=== PATIENT | male | born 1995 | race Hispanic/Latino ===

== ENCOUNTER 2020-07-09 14:42 | Outpatient (CLI) | payer BC ==
--- NOTE | 2020-07-09 16:31 | XRay Report ---
RIGHT WRIST 2 VIEWS INDICATION / CLINICAL INFORMATION: PAIN IN JOINT. COMPARISON: None available. FINDINGS: No significant skeletal abnormality Signer Name: Arthur Verma MD FACR Signed: 07/09/2020 4:27 PM Workstation Name: [email or web address]
== END 2020-07-09 14:43 | disposition home or self-care (01) ==
LOC: XRAY 14:42
PROVIDERS: ATTEND Internal Medicine
DX: M25.541 Pain in joints of right hand (principal)